=== PATIENT | male | born 1960 | race Caucasian/White ===

== ENCOUNTER → 2016-12-08 | Outpatient (CLI) | payer MEDICAID ==
[~2016-12-08] MED LIST: ALBUTEROL SULF 2.5 MG/0.5ML(0.5%) NEB SOLN ONE
== END | disposition home or self-care (01) ==
LOC: RT 10:14
PROVIDERS: ATTEND Internal Medicine Pulmonary Disease
DX: Z01.818 Encounter for other preprocedural examination (principal); J44.9 Chronic obstructive pulmonary disease, unspecified; R94.2 Abnormal results of pulmonary function studies
CPT/HCPCS: 94060; 94640

== ENCOUNTER 2018-07-29 14:23 | Emergency (ER) | payer MEDICAID ==
[~2018-07-29] VITALS: Ht 177.8 cm; Wt 90.7 kg
[2018-07-29 14:31] VITALS: BP 148/86
[2018-07-29] MEDS ORDERED: CLINDAMYCIN 600 MG/4 ML VL IM ONE (15:00)
[2018-07-29] MEDS ORDERED: cefTRIAXone SOD 1,000 MG VL IM ONE (15:00)
[2018-07-29 15:57] LABS: Basophils # (auto) 0 uL; Basophils % (auto) 0.4 % (0.0-2.0); Eosinophils # (auto) 0.5 uL; Eosinophils % (auto) 6.2 % (0.0-7.0); Hematocrit 44.9 % (41.0-53.0); Hemoglobin 14.9 g/dL (13.5-17.5); Lymphocytes # (auto) 1.1 uL; Lymphocytes % (auto) 13.6 % (10.0-50.0); Mean Corpuscular Hemoglobin 29.1 pg (28.0-32.0); Mean Corpuscular Hgb Conc. 33.1 g/dL (32.0-36.0); Mean Corpuscular Volume 87.8 fL (80.0-100.0); Monocytes # (auto) 0.7 uL; Monocytes % (auto) 8.2 % (0.0-12.0); Neutrophils # (auto) 5.8 uL; Neutrophils % (auto) 71.6 % (37.0-80.0); Platelet Count (auto) 296 10^3/uL (140-450); Red Blood Cells 5.12 10^6/uL (4.5-5.90); Red Cell Distribution Width 14.2 % (11.8-14.3); White Blood Cell 8.2 10^3/uL (4.4-10.8)
[2018-07-29 16:10] LABS: Albumin 2.9 g/dL (3.4-5.0); Anion Gap 1 (5-15); Blood Urea Nitrogen 11 mg/dL (7-18); Carbon Dioxide 28 mmol/L (21-32); Chloride 109 mmol/L (98-107); Glucose 98 mg/dL (74-106); Magnesium 2.5 mg/dL (1.6-2.6); Sodium 138 mmol/L (136-145)
[2018-07-29 16:24] LABS: Alanine Aminotransferase 26 U/L (16-61); Alkaline Phosphatase 88 U/L (45-117); Aspartate Aminotransferase 27 U/L (15-37); BUN/Creatinine Ratio 14.7; Bilirubin, Total 0.3 mg/dL (0.2-1.0); GFR African American 137 mL/min; GFR Non-African American 113 mL/min; Total Protein 7.3 g/dL (6.4-8.2)
[2018-07-29] MEDS ORDERED: LIDOCAINE 2% (LOCAL ANESTH.) PF 5ml SDV ONE (18:38)
== END 2018-07-29 19:19 | disposition home or self-care (01) ==
LOC: ER 14:23
DX: L03.116 Cellulitis of left lower limb (principal); L03.115 Cellulitis of right lower limb; J44.9 Chronic obstructive pulmonary disease, unspecified; F17.210 Nicotine dependence, cigarettes, uncomplicated
CPT/HCPCS: 36415; 80053; 83735; 83880; 84484; 85025; 87040; 93005; 93970; 96372; 99284; J0696; J2001

== ENCOUNTER 2020-05-21 08:22 | Inpatient (IN) | payer MEDICAID ==
[~2020-05-21] VITALS: Ht 177.8 cm; Wt 85.5 kg
[2020-05-21] MEDS ORDERED: SODIUM CHLORIDE 0.9% 1,000 ML IV ONE ×2 (08:45)
[2020-05-21] MEDS ORDERED: PIPERACILLIN-TAZOB 3.375GM 100 ML IV ONE (08:45)
[2020-05-21 09:31] LABS: Basophils # (auto) 0.1 10 ^3/uL (0-0.2); Basophils % (auto) 0.9 % (0.0-2.0); Eosinophils # (auto) 0.2 10 ^3/uL (0-0.8); Eosinophils % (auto) 1.6 % (0.0-7.0); Hematocrit 47.4 % (41.0-53.0); Hemoglobin 15.9 g/dL (13.5-17.5); Lymphocytes # (auto) 0.9 10 ^3/uL (0.4-5.4); Lymphocytes % (auto) 7.9 % (10.0-50.0); Mean Corpuscular Hgb Conc. 33.6 g/dL (32.0-36.0); Mean Corpuscular Volume 89.2 fL (80.0-100.0); Monocytes # (auto) 1.2 10 ^3/uL (0-1.3); Monocytes % (auto) 10.6 % (0.0-12.0); Neutrophils # (auto) 9.2 10 ^3/uL (1.6-8.6); Nucleated Red Blood Cells % 0.1 %; Platelet Count (auto) 208 10^3/uL (140-450); Red Blood Cells 5.31 10^6/uL (4.5-5.90); Red Cell Distribution Width 14.6 % (11.8-14.3); White Blood Cell 11.7 10^3/uL (4.4-10.8)
[2020-05-21 09:45] LABS: Albumin 3.1 g/dL (3.4-5.0); Calcium 8.2 mg/dL (8.5-10.1); Potassium 4.3 mmol/L (3.5-5.1)
[2020-05-21 09:48] LABS: Lactic Acid w/Reflex 2.9 mmol/L (0.4-2.0)
[2020-05-21 09:50] LABS: Bilirubin, Total 0.5 mg/dL (0.2-1.0)
[2020-05-21] MEDS ORDERED: ENOXAPARIN SOD 100 MG/1 ML SYRINGE SC ONE ×2 (10:45→11:30)
[2020-05-21] MEDS ORDERED: hydrALAZINE HCL 25 MG TAB PO PRN (11:15)
[2020-05-21] MEDS ORDERED: NITROGLYCERIN 0.4 MG SL TAB SL PRN ×2 (11:15)
[2020-05-21] MEDS ORDERED: SODIUM CHLORIDE 0.9% 1,000 ML IV SCH (11:15)
[2020-05-21] MEDS ORDERED: MORPHINE SULF INJ 2 MG/ML SYRINGE 1ML IV PRN ×2 (11:15)
[2020-05-21] MEDS ORDERED: LORazepam 0.5 MG TAB PO PRN (11:15)
[2020-05-21] MEDS ORDERED: DOCUSATE SOD 100 MG CAP PO PRN (11:15)
[2020-05-21] MEDS ORDERED: ALUM & MAG HYDROX-SIMETH LIQ(MAALOX) 30 ML PO PRN (11:15)
[2020-05-21] MEDS ORDERED: METOPROLOL SUCCINATE XL 50 MG TAB PO ONE (11:15)
[2020-05-21] MEDS ORDERED: ACETAMINOPHEN 325 MG TAB PO PRN (11:15)
[2020-05-21] MEDS ORDERED: ONDANSETRON HCL 4 MG/2 ML VIAL IV PRN (11:15)
[2020-05-21 11:37] LABS: Urine Bacteria NONE SEEN /hpf (None Seen); Urine Blood Negative /uL (Negative); Urine Mucus FEW (None Seen); Urine Specific Gravity 1.018 (1.001-1.035); Urine WBC 1 /hpf (0 - 3)
[2020-05-21 11:46] LABS: INR 1.02 (0.9-1.15); Partial Thromboplastin Time 27.9 sec (23.0-31.2)
[2020-05-21 11:53] LABS: Amphetamine Screen, Urine POSITIVE (NEGATIVE); Barbiturate Scree,Urine NEGATIVE (NEGATIVE); Benzodiazephine Screen, Urine NEGATIVE (NEGATIVE); Cannabinoid Screen, Urine NEGATIVE (NEGATIVE); Cocaine Screen, Urine NEGATIVE (NEGATIVE); Opiate Scree,Urine POSITIVE (NEGATIVE)
[2020-05-21 12:00] LABS: Phencyclidine Screen, Urine NEGATIVE (NEGATIVE)
[2020-05-21] MEDS ORDERED: MORP1TAB14 PO (12:14)
[2020-05-21] MEDS ORDERED: ALPR2TAB6 PO (12:14)
[2020-05-21] MEDS: SODIUM CHLORIDE 0.9% 1,000 ML IV SCH (13:13)
[2020-05-21] MEDS: CLINDAMYCIN 600MG IV 50 ML IV SCH ×2 (13:23→22:00)
[2020-05-21] MEDS: GABAPENTIN 300 MG CAP PO SCH ×2 (13:26→23:03)
[2020-05-21] MEDS: ALBUTEROL SULF 2.5 MG/0.5ML(0.5%) NEB SOLN NEB PRN ×3 (14:03→22:13)
[2020-05-21] MEDS: IPRATROPIUM BROM 0.5 MG/2.5ML INH SOL NEB SCH ×3 (14:03→22:13)
[2020-05-21] MEDS: HYDROcodone-ACET 5/325MG TAB PO PRN (16:17)
--- NOTE | 2020-05-21 18:50 | NUR ---
RECEIVED REPORT FROM NATACHA ARCHULETA RN.
--- NOTE | 2020-05-21 18:51 | NUR ---
Telemetry admit from ER RAYO OSMAN admitted to Telemetry unit after SBAR received. Patient oriented to Jennifer Ma, primary RN, unit, room, bed, and unit policies regarding patient care and visiting hours. Patient now on continuous telemetry monitoring, tele box # and telemetry reading on arrival to unit is . Patient placed on bedside oxygen, weighed by bedscale and encouraged to call if they need something. All questions and concerns addressed, patient verbalized understanding. Note:
--- NOTE | 2020-05-21 19:15 | NUR ---
ENDORSED CARE TO GIULIA DURAND.
[2020-05-21 22:00] VITALS: BP 97/57
[2020-05-21] MEDS: ENOXAPARIN SOD 100 MG/1 ML SYRINGE SC SCH (23:04)
[2020-05-21] MEDS: FUROSEMIDE 20 MG/2 ML VIAL IV SCH (23:13)
[2020-05-21] MEDS: MORPHINE SULF INJ 2 MG/ML SYRINGE 1ML IV PRN (23:15)
[2020-05-22 00:37] VITALS: BP 97/57
[2020-05-22] MEDS: IPRATROPIUM BROM 0.5 MG/2.5ML INH SOL NEB SCH ×6 (02:00→22:25)
[2020-05-22 05:00] VITALS: BP 112/63
--- NOTE | 2020-05-22 06:00 | NUR ---
TOTAL LINEN CHANGE PROVIDED TO PATIENT. PATIENT INCONTINENT OF URINE. PATIENT CLEANED AND NEW GOWN / LINENS APPLIED. URINAL WITHIN REACH OF PATIENT.
[2020-05-22] MEDS: GABAPENTIN 300 MG CAP PO SCH ×3 (06:05→22:04)
[2020-05-22] MEDS: FUROSEMIDE 20 MG/2 ML VIAL IV SCH ×2 (06:05→18:20)
[2020-05-22] MEDS: CLINDAMYCIN 600MG IV 50 ML IV SCH ×3 (06:05→22:04)
[2020-05-22] MEDS: ALBUTEROL SULF 2.5 MG/0.5ML(0.5%) NEB SOLN NEB PRN ×5 (06:38→22:26)
--- NOTE | 2020-05-22 08:00 | NUR ---
Opening Shift Note Assumed care of patient, awake and alert. No S/S of distress/SOB or pain. Respirations are even and non labored. Bed is in lowest, locked position with side rails up x 2 and call light within reach. Instructed on POC and to call for assist PRN, will continue to monitor for changes Q1hr and PRN.
[2020-05-22] MEDS: SODIUM CHLORIDE 0.9% 1,000 ML IV SCH (08:10)
[2020-05-22 09:00] VITALS: BP 103/61
[2020-05-22] MEDS: cefTRIAXone 1GM/50ML D5W 50 ML IV SCH (09:00)
--- NOTE | 2020-05-22 10:31 | NUR ---
IV insertion IV access obtained, via clean sterile technique by inserting 22 gauge catheter at right forearm after 1 attempt. IV secured properly. No trauma to site. Patient tolerated well.
--- NOTE | 2020-05-22 10:35 | NUR ---
IV removal IV to the left AC DC'd with clean sterile technique, catheter fully intact. Pressure dressing applied to site. Patient tolerated well.
[2020-05-22] MEDS: MORPHINE SULF INJ 2 MG/ML SYRINGE 1ML IV PRN ×2 (10:38→20:08)
[2020-05-22] MEDS: ENOXAPARIN SOD 100 MG/1 ML SYRINGE SC SCH ×2 (10:55→22:04)
[2020-05-22] MEDS: METOPROLOL SUCCINATE XL 50 MG TAB PO SCH (11:00)
--- NOTE | 2020-05-22 11:00 | NUR ---
WOUND CARE NOTE: IN TO SEE PATIENT AT THIS TIME PER WOUND CARE CONSULT REQUEST. PATIENT NOTED UPON ADMIT, TO HAVE MULTIPLE WOUNDS. ALL WOUNDS PHOTOGRAPHED AT THAT TIME FOR REFERENCE. PATIENT ADMITTED TO [facility] WITH DIAGNOSIS OF ACUTE CELLULITIS, DVT. PATIENT HAS CURRENT GUNNAR SCORE OF 15. PATIENT CAN SELF TURN/REPOSITION SELF. HE STATES THAT HE PRETTY MUCH LIVES IN EITHER A WHEELCHAIR AND/OR SOFA. HE SLEEPS ON HIS SOFA. HIS LEGS ARE ALWAYS IN THE DEPENDENT POSITION. BOTH LOWER LEGS/FEET ARE VERY EDEMATOUS, WITH ERYTHEMA. APPEARS VENOUS STASIS DERMATITIS, WITH CRUSTED LESIONS AND HYPERKERATOSIS. NO OPEN OR WEEPING AREAS NOTED. LEFT OPEN TO AIR. PATIENT ALSO HAS AN INTACT RASH TO HIS LEFT FLANK AND ARM. HE STATES THAT HE HAS HAD RASH FOR A COUPLE DAYS, PRIOR TO ADMIT. SKIN INTACT, NO WEEPING. LEFT OPEN TO AIR. 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 HE IS ALWAYS IN THE SITTING POSITION 24/7. NO OPEN WOUND NOTED, NON BLANCHING REDNESS SEEN. LEFT HAND HAS BLISTERS/LEONE FROM CIGARETTES, PER PATIENT STATEMENT. RECOMMEND: BID APPLICATION WITH SILVADENE CREAM, BANDAIDS TO LEFT HAND WOUND, BID/PRN APPLICATION MOISTURE BARRIER CREAM, OPTIFOAM GENTLE SACRAL DRESSING, ELEVATION OF BLE UP ON PILLOWS FOR EDEMA CONTROL, FREQUENT TURN SCHEDULE Q 2 HOURS, PRN CONDITION PERMITS, WITH PRESSURE REDISTRIBUTION USING PILLOWS/WEDGES, DIETARY CONSULT, CONTINUED MONITORING BY WOUND CARE TEAM, SKIN/WOUND CARE PLAN. Addendum: 05/22/20 at 1903 by Elizabeth Loera RN Amended: Links added.
[2020-05-22 13:00] VITALS: BP 100/57
--- NOTE | 2020-05-22 15:49 | NUR ---
Pt is an alert and oriented male that is able to communicate but in mild respiratory distress and about to receive a breathing treatment. Pt states he resides with his significant other, Delmi, who is also his [facility] worker. Pt states he has additional support through his ex and children who are in the area. Pt states he is weak and has difficulty ambulating. Pt could benefit from Home Health for PT and possible home oxygen. Pt has not been on home health and has no preference. Pt states his spouse can transport but may need transport through [facility]. No further issues or concerns. Will continue to monitor and provide intervention as appropriate. Addendum: 05/22/20 at 1601 by PARVEEN HUNG Amended: Links added.
[2020-05-22 16:59] VITALS: BP 104/61
[2020-05-22 22:00] VITALS: BP 103/56
[2020-05-22] MEDS: SILVER SULFADIAZINE 1 % TOPICAL CREAM 50GM TOP SCH (22:04)
[2020-05-23] MEDS: SODIUM CHLORIDE 0.9% 1,000 ML IV SCH ×2 (00:50→17:30)
[2020-05-23] MEDS: IPRATROPIUM BROM 0.5 MG/2.5ML INH SOL NEB SCH ×5 (02:17→18:00)
[2020-05-23 05:00] VITALS: BP 102/65
[2020-05-23] MEDS: FUROSEMIDE 20 MG/2 ML VIAL IV SCH ×2 (06:08→18:00)
[2020-05-23] MEDS: CLINDAMYCIN 600MG IV 50 ML IV SCH ×2 (06:08→13:28)
[2020-05-23] MEDS: GABAPENTIN 300 MG CAP PO SCH ×2 (06:08→13:26)
--- NOTE | 2020-05-23 08:00 | NUR ---
Opening Shift Note Assumed care of patient, awake and alert. Patient reports pain to the lower extremities. Respirations are even and non labored on 2L NC. No S/S of distress/SOB. Bed is in the lowest/locked position with side rails up x 2 and call light within reach. Instructed on POC and to call for assist PRN, will continue to monitor for changes Q1hr and PRN.
[2020-05-23 09:00] VITALS: BP 102/59
[2020-05-23] MEDS: MORPHINE SULF INJ 2 MG/ML SYRINGE 1ML IV PRN ×2 (09:37→15:37)
[2020-05-23 09:42] LABS: Basophils # (auto) 0 10 ^3/uL (0-0.2); Basophils % (auto) 0.3 % (0.0-2.0); Eosinophils # (auto) 0.4 10 ^3/uL (0-0.8); Eosinophils % (auto) 4.9 % (0.0-7.0); Hematocrit 42.2 % (41.0-53.0); Hemoglobin 14.2 g/dL (13.5-17.5); Lymphocytes # (auto) 0.5 10 ^3/uL (0.4-5.4); Lymphocytes % (auto) 6.6 % (10.0-50.0); Mean Corpuscular Hemoglobin 30.1 pg (28.0-32.0); Mean Corpuscular Hgb Conc. 33.7 g/dL (32.0-36.0); Mean Corpuscular Volume 89.3 fL (80.0-100.0); Monocytes # (auto) 0.6 10 ^3/uL (0-1.3); Monocytes % (auto) 8.7 % (0.0-12.0); Neutrophils # (auto) 5.9 10 ^3/uL (1.6-8.6); Neutrophils % (auto) 79.5 % (37.0-80.0); Platelet Count (auto) 216 10^3/uL (140-450); Red Blood Cells 4.73 10^6/uL (4.5-5.90); Red Cell Distribution Width 14.8 % (11.8-14.3); White Blood Cell 7.4 10^3/uL (4.4-10.8)
[2020-05-23] MEDS: cefTRIAXone 1GM/50ML D5W 50 ML IV SCH (09:43)
[2020-05-23] MEDS: SILVER SULFADIAZINE 1 % TOPICAL CREAM 50GM TOP SCH (09:44)
[2020-05-23] MEDS: ENOXAPARIN SOD 100 MG/1 ML SYRINGE SC SCH (09:44)
[2020-05-23] MEDS: METOPROLOL SUCCINATE XL 50 MG TAB PO SCH (09:45)
[2020-05-23 09:56] LABS: Calcium 7.8 mg/dL (8.5-10.1); Potassium 3.6 mmol/L (3.5-5.1)
[2020-05-23 09:58] LABS: BUN/Creatinine Ratio 14.1
--- NOTE | 2020-05-23 10:38 | NUR ---
Call to Dr. Jane Patient is a current smoker and asked for a nicotine patch. Paged Dr to request orders.
--- NOTE | 2020-05-23 10:40 | NUR ---
Received call from Dr. Jane New orders received.
[2020-05-23] MEDS ORDERED: NICOTINE 14 MG/24HR TOPICAL PATCH TD ONE (10:45)
[2020-05-23] MEDS: HYDROcodone-ACET 5/325MG TAB PO PRN (12:08)
--- NOTE | 2020-05-23 12:27 | NUR ---
Dr. Leavitt at bedside Assessed patient and answered all questions. Patient to follow up in 2-3 weeks.
[2020-05-23 13:00] VITALS: BP 102/57
[2020-05-23] MEDS: ALBUTEROL SULF 2.5 MG/0.5ML(0.5%) NEB SOLN NEB PRN (14:31)
[2020-05-23 17:00] VITALS: BP 103/60
--- NOTE | 2020-05-23 19:11 | NUR ---
Discharge instructions given as ordered. Encouraged to follow up with PMD, podiatry as instructed, resume home medications and start new ones as directed. All questions and concerns addressed. Emphasized the need to elevate the extremities at all possible times and keep the wounds dry. Reviewed discharge packert and patient verbalized understanding. IV removed with catheter intact, pressure dressing applied, Telemetry unit returned to ICU. Patient taken to vehicle via wheelchair with all personal belongings, accompanied by staff. No distress noted at time of departure.
== END 2020-05-23 19:25 | disposition home or self-care (01) | DRG 720 ==
LOC: ER 08:22 → TELE 08:23 → TELE-WESTW 18:45
PROVIDERS: ADMIT Hospitalist; ATTEND Internal Medicine
DX: A41.9 Sepsis, unspecified organism (principal); I82.411 Acute embolism and thrombosis of right femoral vein; I82.431 Acute embolism and thrombosis of right popliteal vein; E44.0 Moderate protein-calorie malnutrition; I50.32 Chronic diastolic (congestive) heart failure; E87.1 Hypo-osmolality and hyponatremia; F11.20 Opioid dependence, uncomplicated; J44.1 Chronic obstructive pulmonary disease with (acute) exacerbation; M19.90 Unspecified osteoarthritis, unspecified site; L03.115 Cellulitis of right lower limb; F11.229 Opioid dependence with intoxication, unspecified; L03.116 Cellulitis of left lower limb; F10.10 Alcohol abuse, uncomplicated; Z74.01 Bed confinement status; F17.210 Nicotine dependence, cigarettes, uncomplicated; I87.8 Other specified disorders of veins; I89.0 Lymphedema, not elsewhere classified; M54.16 Radiculopathy, lumbar region; Z98.1 Arthrodesis status; Z79.01 Long term (current) use of anticoagulants
CPT/HCPCS: 36415; 70450; 71250; 74176; 76536; 80048; 80053; 80061; 80307; 81001; 83036; 83605; 83880; 84443; 84484; 85025; 85610; 85730; 87040; 87081; 87086; 87205; 93005; 93306; 93970; 94640; G0378; J0696; J2405; J2543; J3490

== ENCOUNTER 2021-08-22 17:44 | Inpatient (IN) | payer MEDICAID ==
[~2021-08-22] VITALS: Ht 172.7 cm; Wt 77.0 kg
[~2021-08-22 17:44] MED LIST changes: -ALBUTEROL SULF 2.5 MG/0.5ML(0.5%) NEB SOLN ONE; +ALPR2TAB6 PO; +MORP1TAB14 PO
[2021-08-22] MEDS ORDERED: methylPREDNISolone SOD SUCC 125 MG/2 ML VL IV ONE (18:30)
[2021-08-22] MEDS ORDERED: IPRATROPIUM BROM 0.5 MG/2.5ML INH SOL HHN ONE (18:30)
[2021-08-22] MEDS ORDERED: ALBUTEROL SULF 2.5 MG/0.5ML(0.5%) NEB SOLN HHN ONE (18:30)
[2021-08-22] MEDS ORDERED: cefTRIAXone 1GM/50ML D5W 50 ML IV ONE (19:45)
[2021-08-22] MEDS ORDERED: AZITHROMYCIN 500MG/ 250ML 250 ML IV ONE (19:45)
[2021-08-22] MEDS ORDERED: CHOLECALCIFEROL (VITD3) 2,000 UNIT CAP/TAB PO ONE (20:15)
[2021-08-22] MEDS ORDERED: ASCORBIC ACID 500 MG TAB PO ONE (20:15)
[2021-08-22] MEDS ORDERED: ZINC SULFATE 220mg CAP or TAB PO ONE (20:15)
[2021-08-22] MEDS ORDERED: DOCUSATE SOD 100 MG CAP PO PRN (20:30)
[2021-08-22] MEDS ORDERED: HYDROcodone-ACET 5/325MG TAB PO PRN (20:30)
[2021-08-22] MEDS ORDERED: ONDANSETRON HCL 4 MG/2 ML VIAL IV PRN (20:30)
[2021-08-22] MEDS ORDERED: ACETAMINOPHEN 500 MG TAB PO PRN (20:30)
[2021-08-22 20:40] LABS: Basophils # (auto) 0 10 ^3/uL (0-0.2); Basophils % (auto) 0.2 % (0.0-2.0); Eosinophils # (auto) 0 10 ^3/uL (0-0.8); Hematocrit 44.2 % (41.0-53.0); Hemoglobin 14.8 g/dL (13.5-17.5); Lymphocytes # (auto) 0.7 10 ^3/uL (0.4-5.4); Lymphocytes % (auto) 4.9 % (10.0-50.0); Mean Corpuscular Hemoglobin 29.3 pg (28.0-32.0); Mean Corpuscular Hgb Conc. 33.6 g/dL (32.0-36.0); Mean Corpuscular Volume 87.3 fL (80.0-100.0); Monocytes # (auto) 1.2 10 ^3/uL (0-1.3); Monocytes % (auto) 7.8 % (0.0-12.0); Neutrophils % (auto) 87.1 % (37.0-80.0); Nucleated Red Blood Cells % 0.1 %; Red Blood Cells 5.06 10^6/uL (4.5-5.90); Red Cell Distribution Width 14.1 % (11.8-14.3)
[2021-08-22 20:43] LABS: Albumin 3.1 g/dL (3.4-5.0); Potassium 3.8 mmol/L (3.5-5.1)
[2021-08-22 20:54] LABS: Bilirubin, Total 0.7 mg/dL (0.2-1.0); CRP High Sensitivity 16.7 mg/dL (< 0.3); Total Protein 7.3 g/dL (6.4-8.2)
[2021-08-22] MEDS ORDERED: IOHEXOL 350 MG/ML 100ML IJ ONE (21:26)
[2021-08-22] MEDS: BUDESONIDE (INHALATION) 180 MCG IH IN SCH (22:00)
[2021-08-22] MEDS: SODIUM CHLOR 0.9% PF (SALINE LOCK) 10ML VIAL/SYR IV SCH (22:01)
[2021-08-22] MEDS: ENOXAPARIN SOD 40 MG/0.4 ML SYRINGE SC SCH (22:29)
[2021-08-22] MEDS: FAMOTIDINE (10MG/ML) 2ML VL IV SCH (22:29)
[2021-08-22] MEDS ORDERED: MORPHINE SULFATE INJECTION 2 MG/ML SYRG IV PRN (22:30)
[2021-08-22] MEDS ORDERED: NITROGLYCERIN 0.4 MG SL TAB SL PRN (22:30)
[2021-08-23 02:40] LABS: Basophils # (auto) 0 10 ^3/uL (0-0.2); Basophils % (auto) 0.3 % (0.0-2.0); Eosinophils # (auto) 0 10 ^3/uL (0-0.8); Hematocrit 43.5 % (41.0-53.0); Hemoglobin 14.6 g/dL (13.5-17.5); Lymphocytes # (auto) 0.3 10 ^3/uL (0.4-5.4); Lymphocytes % (auto) 2.2 % (10.0-50.0); Mean Corpuscular Hgb Conc. 33.6 g/dL (32.0-36.0); Mean Corpuscular Volume 86.5 fL (80.0-100.0); Monocytes # (auto) 0.4 10 ^3/uL (0-1.3); Monocytes % (auto) 2.9 % (0.0-12.0); Neutrophils # (auto) 13.9 10 ^3/uL (1.6-8.6); Neutrophils % (auto) 94.6 % (37.0-80.0); Red Blood Cells 5.03 10^6/uL (4.5-5.90); White Blood Cell 14.7 10^3/uL (4.4-10.8)
[2021-08-23] MEDS ORDERED: FUROSEMIDE 40 MG/4 ML VIAL IV ONE (03:15)
[2021-08-23 03:19] LABS: Albumin 2.7 g/dL (3.4-5.0); Calcium 8.2 mg/dL (8.5-10.1); Potassium 4.5 mmol/L (3.5-5.1)
[2021-08-23 03:21] LABS: BUN/Creatinine Ratio 22.3
[2021-08-23 03:26] LABS: Bilirubin, Total 0.5 mg/dL (0.2-1.0); Total Protein 6.9 g/dL (6.4-8.2)
[2021-08-23] MEDS: SODIUM CHLOR 0.9% PF (SALINE LOCK) 10ML VIAL/SYR IV SCH ×3 (06:06→22:23)
[2021-08-23] MEDS: cefTRIAXone 1GM/50ML D5W 50 ML IV SCH (09:00)
[2021-08-23] MEDS: ASCORBIC ACID 1,000 MG TAB PO SCH (10:00)
[2021-08-23] MEDS: AZITHROMYCIN 500MG/ 250ML 250 ML IV SCH (10:00)
[2021-08-23] MEDS: ZINC SULFATE 220mg CAP or TAB PO SCH (10:00)
[2021-08-23] MEDS: CHOLECALCIFEROL (VITD3) 2,000 UNIT CAP/TAB PO SCH (10:00)
[2021-08-23] MEDS: DexAMETHasone SOD PHOS 10MG/1ML VIAL INJ IV SCH (10:00)
[2021-08-23] MEDS: FUROSEMIDE 40 MG/4 ML VIAL IV SCH (10:00)
[2021-08-23] MEDS: BUDESONIDE (INHALATION) 180 MCG IH IN SCH ×2 (10:00→19:10)
[2021-08-23] MEDS: ENOXAPARIN SOD 40 MG/0.4 ML SYRINGE SC SCH ×2 (10:00→22:24)
[2021-08-23] MEDS: MULTIPLE VITAMIN TAB PO SCH (10:00)
[2021-08-23] MEDS: FAMOTIDINE (10MG/ML) 2ML VL IV SCH ×2 (10:00→22:23)
[2021-08-23] MEDS: ASPirin 81 mg TAB PO SCH (10:00)
[2021-08-23] MEDS ORDERED: REMDESIVIR PER PHARMACY 0 ML IV SCH (13:00)
[2021-08-23] MEDS: MORPHINE SULFATE 4 MG/ML SYR/VIAL IV PRN ×2 (13:28→22:23)
[2021-08-23] MEDS ORDERED: REMDESIVIR 200 MG in NS 210ml LOADING DOSE ADULT IV ONE (15:00)
[2021-08-23] MEDS: ALBUTEROL SULF HFA 90MCG INH 200DOSE IN PRN (19:50)
[2021-08-23 21:45] VITALS: BP 111/68
[2021-08-24] MEDS ORDERED: LEVO25TA49 PO (00:22)
[2021-08-24] MEDS ORDERED: APIX2.5T PO (00:22)
[2021-08-24] MEDS ORDERED: PERCOT PO (00:23)
[2021-08-24 05:00] VITALS: BP 99/62
[2021-08-24] MEDS: MORPHINE SULFATE 4 MG/ML SYR/VIAL IV PRN ×3 (05:40→21:00)
[2021-08-24] MEDS: SODIUM CHLOR 0.9% PF (SALINE LOCK) 10ML VIAL/SYR IV SCH ×3 (05:59→21:45)
[2021-08-24 06:46] LABS: Basophils # (auto) 0 10 ^3/uL (0-0.2); Eosinophils # (auto) 0 10 ^3/uL (0-0.8); Hematocrit 41.9 % (41.0-53.0); Hemoglobin 14.2 g/dL (13.5-17.5); Lymphocytes # (auto) 0.6 10 ^3/uL (0.4-5.4); Lymphocytes % (auto) 2.5 % (10.0-50.0); Mean Corpuscular Hemoglobin 29.2 pg (28.0-32.0); Mean Corpuscular Volume 85.9 fL (80.0-100.0); Monocytes # (auto) 1.6 10 ^3/uL (0-1.3); Monocytes % (auto) 6.8 % (0.0-12.0); Neutrophils # (auto) 21.1 10 ^3/uL (1.6-8.6); Neutrophils % (auto) 90.7 % (37.0-80.0); Red Blood Cells 4.87 10^6/uL (4.5-5.90); Red Cell Distribution Width 13.7 % (11.8-14.3); White Blood Cell 23.3 10^3/uL (4.4-10.8)
[2021-08-24 06:57] LABS: INR 1.02 (0.9-1.15); Partial Thromboplastin Time 28.2 sec (23.6-33.0)
[2021-08-24 07:00] LABS: Albumin 2.7 g/dL (3.4-5.0); Calcium 8.3 mg/dL (8.5-10.1); Magnesium 3.7 mg/dL (1.6-2.6); Potassium 3.7 mmol/L (3.5-5.1)
[2021-08-24 07:09] LABS: BUN/Creatinine Ratio 35.3; Bilirubin, Total 0.4 mg/dL (0.2-1.0); Phosphorus 2.2 mg/dL (2.5-4.90); Total Protein 6.5 g/dL (6.4-8.2); Uric Acid 7.8 mg/dL (3.5-7.2)
[2021-08-24 09:00] VITALS: BP 104/59
[2021-08-24] MEDS: CHOLECALCIFEROL (VITD3) 2,000 UNIT CAP/TAB PO SCH (09:00)
[2021-08-24] MEDS: ZINC SULFATE 220mg CAP or TAB PO SCH (09:00)
[2021-08-24] MEDS: ASCORBIC ACID 1,000 MG TAB PO SCH (09:00)
[2021-08-24] MEDS: ASPirin 81 mg TAB PO SCH (09:01)
[2021-08-24] MEDS: MULTIPLE VITAMIN TAB PO SCH (09:01)
[2021-08-24] MEDS: cefTRIAXone 1GM/50ML D5W 50 ML IV SCH (09:01)
[2021-08-24] MEDS: FAMOTIDINE (10MG/ML) 2ML VL IV SCH ×2 (09:01→21:45)
[2021-08-24] MEDS: AZITHROMYCIN 500MG/ 250ML 250 ML IV SCH (09:01)
[2021-08-24] MEDS: ENOXAPARIN SOD 40 MG/0.4 ML SYRINGE SC SCH ×2 (09:02→21:45)
[2021-08-24] MEDS: DexAMETHasone SOD PHOS 10MG/1ML VIAL INJ IV SCH (09:02)
[2021-08-24] MEDS: FUROSEMIDE 40 MG/4 ML VIAL IV SCH (09:03)
[2021-08-24] MEDS ORDERED: NICOTINE 21MG/24 HR TOPICAL PATCH TD ONE (10:15)
[2021-08-24] MEDS: ALBUTEROL SULF HFA 90MCG INH 200DOSE IN PRN ×2 (10:41→23:33)
[2021-08-24] MEDS: BUDESONIDE (INHALATION) 180 MCG IH IN SCH ×2 (10:41→21:55)
[2021-08-24 13:00] VITALS: BP 108/63
[2021-08-24] MEDS: REMDESIVIR 100mg 100 MG in SODIUM CHL 0.9% 230 ML IV SCH (15:01)
[2021-08-24] MEDS ORDERED: ZOLPIDEM TARTRATE 5 MG TAB PO PRN (15:15)
[2021-08-24 17:00] VITALS: BP 106/65
[2021-08-24 22:00] VITALS: BP 105/61
[2021-08-25 05:00] VITALS: BP 116/69
[2021-08-25] MEDS: SODIUM CHLOR 0.9% PF (SALINE LOCK) 10ML VIAL/SYR IV SCH ×3 (06:09→21:43)
[2021-08-25 07:23] LABS: Potassium 3.8 mmol/L (3.5-5.1)
[2021-08-25 07:35] LABS: Albumin 2.7 g/dL (3.4-5.0); BUN/Creatinine Ratio 42.6; Bilirubin, Total 0.4 mg/dL (0.2-1.0); Calcium 8.1 mg/dL (8.5-10.1)
[2021-08-25] MEDS: ALBUTEROL SULF HFA 90MCG INH 200DOSE IN PRN ×2 (08:06→20:19)
[2021-08-25] MEDS: BUDESONIDE (INHALATION) 180 MCG IH IN SCH ×2 (08:06→20:19)
[2021-08-25 08:11] VITALS: BP 118/71
[2021-08-25] MEDS: ENOXAPARIN SOD 40 MG/0.4 ML SYRINGE SC SCH ×2 (09:35→21:43)
[2021-08-25] MEDS: ASCORBIC ACID 1,000 MG TAB PO SCH (09:36)
[2021-08-25] MEDS: CHOLECALCIFEROL (VITD3) 2,000 UNIT CAP/TAB PO SCH (09:36)
[2021-08-25] MEDS: ASPirin 81 mg TAB PO SCH (09:36)
[2021-08-25] MEDS: MULTIPLE VITAMIN TAB PO SCH (09:36)
[2021-08-25] MEDS: FUROSEMIDE 40 MG/4 ML VIAL IV SCH (09:37)
[2021-08-25] MEDS: cefTRIAXone 1GM/50ML D5W 50 ML IV SCH (09:37)
[2021-08-25] MEDS: DexAMETHasone SOD PHOS 10MG/1ML VIAL INJ IV SCH (09:37)
[2021-08-25] MEDS: ZINC SULFATE 220mg CAP or TAB PO SCH (09:37)
[2021-08-25] MEDS: AZITHROMYCIN 500MG/ 250ML 250 ML IV SCH (09:37)
[2021-08-25] MEDS: FAMOTIDINE (10MG/ML) 2ML VL IV SCH ×2 (09:38→21:43)
[2021-08-25] MEDS: NICOTINE 21MG/24 HR TOPICAL PATCH TD SCH (09:38)
[2021-08-25] MEDS: MORPHINE SULFATE 4 MG/ML SYR/VIAL IV PRN ×2 (09:50→16:35)
[2021-08-25] MEDS ORDERED: LORazepam 0.5 MG TAB PO PRN (10:30)
[2021-08-25] MEDS ORDERED: TEMAZEPAM 15 MG CAP PO PRN (10:30)
[2021-08-25 12:00] VITALS: BP 124/70
[2021-08-25] MEDS: REMDESIVIR 100mg 100 MG in SODIUM CHL 0.9% 230 ML IV SCH (14:57)
[2021-08-25 16:00] VITALS: BP 135/75
[2021-08-25 22:00] VITALS: BP 116/68
[2021-08-26 05:00] VITALS: BP 117/64
[2021-08-26] MEDS: SODIUM CHLOR 0.9% PF (SALINE LOCK) 10ML VIAL/SYR IV SCH ×2 (06:00→12:41)
[2021-08-26] MEDS: MORPHINE SULFATE 4 MG/ML SYR/VIAL IV PRN ×2 (06:41→13:30)
[2021-08-26 08:30] VITALS: BP 115/59
[2021-08-26 08:43] LABS: Basophils # (auto) 0 10 ^3/uL (0-0.2); Basophils % (auto) 0.3 % (0.0-2.0); Eosinophils # (auto) 0 10 ^3/uL (0-0.8); Eosinophils % (auto) 0.2 % (0.0-7.0); Hematocrit 43.3 % (41.0-53.0); Hemoglobin 14.8 g/dL (13.5-17.5); Lymphocytes # (auto) 0.8 10 ^3/uL (0.4-5.4); Lymphocytes % (auto) 7.6 % (10.0-50.0); Mean Corpuscular Hemoglobin 29.7 pg (28.0-32.0); Mean Corpuscular Hgb Conc. 34.3 g/dL (32.0-36.0); Mean Corpuscular Volume 86.8 fL (80.0-100.0); Monocytes # (auto) 1.1 10 ^3/uL (0-1.3); Monocytes % (auto) 10.1 % (0.0-12.0); Neutrophils # (auto) 8.8 10 ^3/uL (1.6-8.6); Neutrophils % (auto) 81.8 % (37.0-80.0); Nucleated Red Blood Cells % 0.1 %; Red Blood Cells 4.98 10^6/uL (4.5-5.90); Red Cell Distribution Width 13.9 % (11.8-14.3); White Blood Cell 10.8 10^3/uL (4.4-10.8)
[2021-08-26] MEDS: ASPirin 81 mg TAB PO SCH (08:58)
[2021-08-26] MEDS: ZINC SULFATE 220mg CAP or TAB PO SCH (08:58)
[2021-08-26] MEDS: MULTIPLE VITAMIN TAB PO SCH (08:59)
[2021-08-26] MEDS: ASCORBIC ACID 1,000 MG TAB PO SCH (08:59)
[2021-08-26] MEDS: CHOLECALCIFEROL (VITD3) 2,000 UNIT CAP/TAB PO SCH (08:59)
[2021-08-26] MEDS: cefTRIAXone 1GM/50ML D5W 50 ML IV SCH (09:00)
[2021-08-26] MEDS: ENOXAPARIN SOD 40 MG/0.4 ML SYRINGE SC SCH (09:00)
[2021-08-26] MEDS: DexAMETHasone SOD PHOS 10MG/1ML VIAL INJ IV SCH (09:00)
[2021-08-26] MEDS: NICOTINE 21MG/24 HR TOPICAL PATCH TD SCH (09:19)
[2021-08-26] MEDS: AZITHROMYCIN 500MG/ 250ML 250 ML IV SCH (09:20)
[2021-08-26] MEDS: FUROSEMIDE 40 MG/4 ML VIAL IV SCH (09:21)
[2021-08-26] MEDS: FAMOTIDINE (10MG/ML) 2ML VL IV SCH (09:21)
[2021-08-26 09:35] LABS: Albumin 2.9 g/dL (3.4-5.0); Calcium 8.3 mg/dL (8.5-10.1); Potassium 3.6 mmol/L (3.5-5.1)
[2021-08-26 09:38] LABS: BUN/Creatinine Ratio 35.4; Bilirubin, Total 0.4 mg/dL (0.2-1.0); Total Protein 6.5 g/dL (6.4-8.2)
[2021-08-26] MEDS ORDERED: ASCO500C5 OR (12:02)
[2021-08-26] MEDS ORDERED: AZIT500T66 PO (12:02)
[2021-08-26] MEDS ORDERED: CHOL20009 PO (12:02)
[2021-08-26] MEDS ORDERED: ALBUAER3 IN (12:02)
[2021-08-26] MEDS ORDERED: NIC21P TOP (12:02)
[2021-08-26] MEDS ORDERED: ZINC220C10 PO (12:04)
[2021-08-26] MEDS ORDERED: PRED20TA2 PO (12:04)
[2021-08-26] MEDS: BUDESONIDE (INHALATION) 180 MCG IH IN SCH (12:08)
[2021-08-26] MEDS: ALBUTEROL SULF HFA 90MCG INH 200DOSE IN PRN (12:08)
[2021-08-26 12:30] VITALS: BP 118/68
[2021-08-26 15:26] LABS: Hepatitis A Ab IgM Negative; Hepatitis B Core IgM Negative
[2021-08-26 15:27] LABS: Hepatitis C Antibody Negative (Negative)
[2021-08-26] MEDS: REMDESIVIR 100mg 100 MG in SODIUM CHL 0.9% 230 ML IV SCH (15:30)
[2021-08-26 17:00] VITALS: BP 125/61
== END 2021-08-26 18:48 | disposition home or self-care (01) | DRG 720 ==
LOC: ER 17:44 → TELE 22:27 → TELE-WESTW 08-23 21:35
PROVIDERS: ADMIT Nurse Practitioner Family; ATTEND Family Medicine
PROC: XW033E5 Introduction of Remdesivir Anti-infective into Peripheral Vein, Percutaneous Approach, New Technology Group 5 (ICD-10-PCS; principal; 2021-08-23)
DX: A41.9 Sepsis, unspecified organism (principal); J96.01 Acute respiratory failure with hypoxia; J12.82 Pneumonia due to coronavirus disease 2019; U07.1 COVID-19; D89.839 Cytokine release syndrome, grade unspecified; F12.90 Cannabis use, unspecified, uncomplicated; F17.210 Nicotine dependence, cigarettes, uncomplicated; R73.9 Hyperglycemia, unspecified; J44.0 Chronic obstructive pulmonary disease with (acute) lower respiratory infection; J98.11 Atelectasis; Z91.19 Patient's noncompliance with other medical treatment and regimen; G89.29 Other chronic pain; R00.0 Tachycardia, unspecified; E03.9 Hypothyroidism, unspecified; J44.1 Chronic obstructive pulmonary disease with (acute) exacerbation; I87.2 Venous insufficiency (chronic) (peripheral); F19.90 Other psychoactive substance use, unspecified, uncomplicated; Z71.6 Tobacco abuse counseling
CPT/HCPCS: 36415; 71045; 71275; 80053; 80074; 82728; 83036; 83605; 83615; 83735; 83880; 84100; 84443; 84484; 84550; 85025; 85379; 85610; 85730; 86141; 87040; 87426; 93005; 93970; 94640; 96365; 96375; 97163; 99291; G0378; J0696; J1100; J3490